=== PATIENT | male | born 1960 | race Caucasian/White ===

== ENCOUNTER 2018-12-05 16:56 | Inpatient (IN) | payer OTHER ==
[~2018-12-05] VITALS: Ht 175.3 cm; Wt 85.7 kg
[~2018-12-05 16:56] MED LIST: [UNRECOGNIZED DRUG - REMARK]
[2018-12-05 17:07] VITALS: BP 134/84
--- NOTE | 2018-12-05 17:28 | NUR ---
PT TO ED WITH C/O COUGH X 3 MOS. PT ONLY REPORTS PAIN UPON COUGHING TO RT SIDE OF CHEST. NO RESP DISTRESS NOTED. LUNG SOUNDS CLEAR BIALTERALLY. PT PLACED INTO BED, PENDING MD KIM.
[2018-12-05] MEDS ORDERED: AZITHROMYCIN 500 MG in DEXTROSE 5% 250 ML IV SCH (18:00)
[2018-12-05] MEDS ORDERED: NACL 0.9% 1,000 ML IV ONE (18:01)
[2018-12-05] MEDS ORDERED: AZITHROMYCIN 500 MG in DEXTROSE 5% 250 ML IV ONE (18:05)
[2018-12-05 18:19] LABS: BASOPHILS # (AUTO) 0.1 K/uL (0.00-0.22); BASOPHILS % (AUTO) 0.6 % (0.0-2.0); EOSINOPHILS # (AUTO) 1.3 K/uL (0-0.4); EOSINOPHILS % (AUTO) 11.5 % (0.0-4.0); HEMATOCRIT 38.2 % (36-52); HEMOGLOBIN 12.8 g/dL (12.0-18.0); LYMPHOCYTES # (AUTO) 1.8 K/uL (2.0-11.5); LYMPHOCYTES % (AUTO) 15.6 % (20.5-51.1); MEAN CORPUSCULAR HEMOGLOBIN 30 pg (27-31); MEAN CORPUSCULAR HGB CONC 34 g/dL (33-37); MEAN CORPUSCULAR VOLUME 89.8 fL (80-94); MONOCYTES # (AUTO) 0.7 K/uL (0.8-1.0); MONOCYTES % (AUTO) 6.5 % (1.7-9.3); NEUTROPHILS # (AUTO) 7.4 K/uL (1.8-7.7); NEUTROPHILS % (AUTO) 65.8 % (42.2-75.2); PLATELET COUNT (AUTO) 323 K/uL (140-450); RED BLOOD CELL COUNT(AUTO) 4.25 MIL/uL (4.20-6.10); WHITE BLOOD COUNT (AUTO) 11.3 K/uL (4.8-10.8)
[2018-12-05] MEDS ORDERED: AZITHROMYCIN 500 MG INJ VIAL IV ONE (18:28)
[2018-12-05] MEDS ORDERED: cefTRIAXone 1,000 MG VIAL ONE (18:28)
[2018-12-05 18:36] LABS: PROTHROMBIN TIME 10.2 secs (10.8-13.4)
[2018-12-05 18:42] LABS: ALBUMIN 2.9 g/dL (3.4-5.0); ANION GAP 15.9 (8-16); CARBON DIOXIDE 24.9 mmol/L (21-32); CREATININE 0.7 mg/dL (0.7-1.3); POTASSIUM 3.8 mmol/L (3.5-5.1); TOTAL BILIRUBIN 0.3 mg/dL (0.0-1.0)
--- NOTE | 2018-12-05 18:50 | NUR ---
PLACED PT ON 2L NC FOR SATURATION OF 93% ROOM AIR. PT TOLERATED WELL.
[2018-12-05 19:13] LABS: APPEARANCE,URINE HAZY (CLEAR); BILIRUBIN,URINE NEGATIVE (NEGATIVE); BLOOD, URINE NEGATIVE (NEGATIVE); COLOR,URINE YELLOW (YELLOW); LEUKOCYTE ESTERASE ,URINE NEGATIVE (NEGATIVE); NITRITE, URINE NEGATIVE (NEGATIVE); UGLUCOSE NEGATIVE (NEGATIVE)
[2018-12-05] MEDS ORDERED: DOL10 PO (19:13)
--- NOTE | 2018-12-05 19:20 | NUR ---
Patient will be admitted to care of DR BOLTON. Admited to MED SURG. Will go to room 120-A. Belongings list completed. Report to PLASTER CASTER.
[2018-12-05 19:30] VITALS: BP 125/70
--- NOTE | 2018-12-05 19:30 | NUR ---
RECIEVED PT. [id number] , NID FROM ER ALOK INIGUEZ , IV SITE INTACT , AMBULATES TO BED , PLAN OF CARE DISCUSSED AND VERBALIZE UNDERSTANDING . BED IN LOW POSITION ,SIDERAILS UP X2 , CALL LIGHT WITHIN REACH . WILL CONT. TO MONITOR. Addendum: 12/06/18 at 0305 by Kimmy Fuentes RN ON O2 /NC AT 3LPM ORDERED.
--- NOTE | 2018-12-05 21:45 | NUR ---
AP MADE T.O ADMITTING ORDERS AND CARRIED OUT .
--- NOTE | 2018-12-05 22:00 | NUR ---
MADE ROUNDS . PT RESPIRATION UNLABORED , EVEN , NO COMPLAIN MADE AT THIS TIME ,WILL CONTINUE TO MONITOR .CALL LIGHT WITHIN REACH
[2018-12-05] MEDS ORDERED: NACL 0.9% 1,000 ML IV SCH (22:40)
[2018-12-06] VITALS: BP 130/70
--- NOTE | 2018-12-06 | NUR ---
MADE ROUNDS .PT RESPIRATION UNLABOR AND EVEN , NO COMPLAIN MADE AT THIS TIME .WILL CONT. TO MONITOR - CALL LIGHT WITHIN REACH
--- NOTE | 2018-12-06 02:00 | NUR ---
PT SLEEPING - NO SIGNS OF DISTRESS NOTED AT THIS TIME , CALL LIGHT WITH IN REACH.
[2018-12-06 03:36] VITALS: BP 130/72
--- NOTE | 2018-12-06 04:00 | NUR ---
MADE ROUNDS , NO COMPLAIN MADE ,CALL LIGHT WITHIN REACH.
--- NOTE | 2018-12-06 06:00 | NUR ---
PT IS RESTING ON BED , NO SIGNS OF RESPIRATORY DISTRESS NOTED , CALL LIGHT WITHIN REACH
--- NOTE | 2018-12-06 07:20 | NUR ---
ENDORSED TO AM SHIFT FOR CONTINUITY OF CARE WITH STABLE CONDITION
--- NOTE | 2018-12-06 07:21 | NUR ---
Received bedside report from pm nurse Kimmy. Pt resting in bed, respirations even & nonlabored with O2 @ 3Lpm via n/c, no signs of distress. Right hand IV intact & asymptomatic with ongoing NS @ 50ml/hr. Call light within reach.
[2018-12-06 08:00] VITALS: BP 115/80
--- NOTE | 2018-12-06 09:56 | NUR ---
PATIENT HAS BEEN SCREENED AND CATEGORIZED MODERATE NUTRITION RISK. PATIENT WILL BE SEEN WITHIN 3-5 DAYS OF ADMISSION. 12/08/18-12/10/[address]
[2018-12-06] MEDS ORDERED: METHADONE 10 MG TAB PO SCH (12:00)
[2018-12-06] MEDS ORDERED: BUDE1AER IH (13:03)
[2018-12-06] MEDS ORDERED: ALBU-118 IH (13:04)
[2018-12-06] MEDS ORDERED: LEVO750T2 PO (13:05)
--- NOTE | 2018-12-06 14:32 | NUR ---
Pt discharge at this time. Verbal & written discharge instructions provided to pt, able to verbalize understanding. Right hand IV discontinued, cannula intact. Pt amb off unit with steady gait to meet with friend at [facility]. All belongings with pt upon departure.
== END 2018-12-06 14:32 | disposition home or self-care (01) | DRG 139 ==
LOC: MED 16:56 → MTU 19:01
PROVIDERS: ADMIT Internal Medicine Pulmonary Disease; ATTEND Internal Medicine Pulmonary Disease
DX: J18.9 Pneumonia, unspecified organism (principal); F11.20 Opioid dependence, uncomplicated; I10 Essential (primary) hypertension; F17.210 Nicotine dependence, cigarettes, uncomplicated; J45.909 Unspecified asthma, uncomplicated
CPT/HCPCS: 36415; 71045; 80053; 81003; 83605; 83880; 84484; 85025; 85610; 87040; 87081; 87086; 93005; 96365; 96368; 99285; J0456; J0696; J7060; Q0092

== ENCOUNTER 2019-01-27 18:35 | Emergency (ER) | payer OTHER ==
[~2019-01-27] VITALS: Ht 175.3 cm; Wt 86.2 kg
[~2019-01-27 18:35] MED LIST changes: +ALBU-118 IH; +BUDE1AER IH; +DOL10 PO; +LEVO750T2 PO; -[UNRECOGNIZED DRUG - REMARK]
[2019-01-27 18:40] VITALS: BP 140/92
[2019-01-27] MEDS ORDERED: methylPREDNISolone SS 125 MG/2 ML VIAL IVP ONE (19:45)
[2019-01-27] MEDS ORDERED: ALBUTEROL SULFATE/IPRATROPIU 3 ML SOL IH ONE (19:45)
[2019-01-27 20:18] LABS: BASOPHILS # (AUTO) 0.1 K/uL (0.00-0.22); BASOPHILS % (AUTO) 0.9 % (0.0-2.0); EOSINOPHILS # (AUTO) 1.4 K/uL (0-0.4); EOSINOPHILS % (AUTO) 13.7 % (0.0-4.0); HEMATOCRIT 38.9 % (36-52); LYMPHOCYTES # (AUTO) 2.4 K/uL (2.0-11.5); LYMPHOCYTES % (AUTO) 23.4 % (20.5-51.1); MEAN CORPUSCULAR HEMOGLOBIN 30 pg (27-31); MEAN CORPUSCULAR HGB CONC 34 g/dL (33-37); MONOCYTES # (AUTO) 0.6 K/uL (0.8-1.0); MONOCYTES % (AUTO) 5.9 % (1.7-9.3); NEUTROPHILS # (AUTO) 5.7 K/uL (1.8-7.7); NEUTROPHILS % (AUTO) 56.1 % (42.2-75.2); PLATELET COUNT (AUTO) 223 K/uL (140-450); RED BLOOD CELL COUNT(AUTO) 4.32 MIL/uL (4.20-6.10); RED CELL DISTRIBUTION WIDTH 14.6 % (11.6-13.7); WHITE BLOOD COUNT (AUTO) 10.1 K/uL (4.8-10.8)
[2019-01-27] MEDS ORDERED: ALBUTEROL 0.083% 2.5 MG/3 ML NEBU INH ONE (20:20)
[2019-01-27] MEDS ORDERED: BUDESONIDE 0.5 MG/2 ML NEBU INH ONE (20:20)
[2019-01-27 21:05] LABS: ANION GAP 16.2 (8-16); CARBON DIOXIDE 21.7 mmol/L (21-32); CREATININE 0.8 mg/dL (0.7-1.3); POTASSIUM 3.9 mmol/L (3.5-5.1)
[2019-01-27 21:09] LABS: ALBUMIN 3.1 g/dL (3.4-5.0); TOTAL BILIRUBIN 0.3 mg/dL (0.0-1.0)
[2019-01-27] MEDS ORDERED: LEVOFLOXACIN 750 MG TAB PO ONE (22:55)
[2019-01-27 23:22] VITALS: BP 150/96
== END 2019-01-27 23:20 | disposition home or self-care (01) ==
LOC: MED 18:35
DX: Z71.6 Tobacco abuse counseling (principal); J44.1 Chronic obstructive pulmonary disease with (acute) exacerbation; F17.210 Nicotine dependence, cigarettes, uncomplicated; Z79.891 Long term (current) use of opiate analgesic
CPT/HCPCS: 36415; 71045; 71250; 80053; 83605; 85025; 87040; 94640; 94644; 96374; 99285; J2930; J7613; J7620; J7626; Q0092

== ENCOUNTER 2019-02-21 22:52 | Emergency (ER) | payer OTHER ==
[~2019-02-21] VITALS: Ht 175.3 cm; Wt 86.2 kg
[~2019-02-21 22:52] MED LIST changes: -ALBU-118 IH; -BUDE1AER IH; -LEVO750T2 PO
[2019-02-21 23:00] VITALS: BP 173/100
[2019-02-21] MEDS ORDERED: ENALAPRILAT 2.5 MG/2 ML VIAL IVP ONE (23:10)
[2019-02-21] MEDS ORDERED: ONDANSETRON 4 MG/2 ML VIAL IVP ONE (23:10)
[2019-02-21] MEDS ORDERED: MORPHINE SULFATE 4 MG/ML SYR IVP ONE (23:10)
[2019-02-21] MEDS ORDERED: hydrALAZINE 20 MG/ML VIAL IVP ONE (23:10)
[2019-02-21 23:36] LABS: BASOPHILS # (AUTO) 0.1 K/uL (0.00-0.22); BASOPHILS % (AUTO) 0.8 % (0.0-2.0); EOSINOPHILS # (AUTO) 0.9 K/uL (0-0.4); EOSINOPHILS % (AUTO) 11.8 % (0.0-4.0); HEMATOCRIT 41.2 % (36-52); HEMOGLOBIN 13.6 g/dL (12.0-18.0); LYMPHOCYTES # (AUTO) 3.6 K/uL (2.0-11.5); LYMPHOCYTES % (AUTO) 45.6 % (20.5-51.1); MEAN CORPUSCULAR HEMOGLOBIN 30 pg (27-31); MEAN CORPUSCULAR HGB CONC 33 g/dL (33-37); MONOCYTES # (AUTO) 0.7 K/uL (0.8-1.0); NEUTROPHILS # (AUTO) 2.6 K/uL (1.8-7.7); NEUTROPHILS % (AUTO) 32.8 % (42.2-75.2); PLATELET COUNT (AUTO) 243 K/uL (140-450); RED BLOOD CELL COUNT(AUTO) 4.53 MIL/uL (4.20-6.10); RED CELL DISTRIBUTION WIDTH 15.2 % (11.6-13.7); WHITE BLOOD COUNT (AUTO) 7.9 K/uL (4.8-10.8)
[2019-02-21 23:45] LABS: ANION GAP 13.2 (8-16); CREATININE 0.8 mg/dL (0.7-1.3); POTASSIUM 3.2 mmol/L (3.5-5.1)
[2019-02-21 23:51] LABS: ALBUMIN 3.3 g/dL (3.4-5.0); TOTAL BILIRUBIN 0.2 mg/dL (0.0-1.0)
[2019-02-22 01:00] VITALS: BP 132/83
== END 2019-02-22 01:00 | disposition home or self-care (01) ==
LOC: MED 22:52
DX: I10 Essential (primary) hypertension (principal); R51 Headache; J44.9 Chronic obstructive pulmonary disease, unspecified; F17.210 Nicotine dependence, cigarettes, uncomplicated; Z79.899 Other long term (current) drug therapy
CPT/HCPCS: 36415; 70450; 80053; 85025; 93005; 96374; 96375; 99284; J0360; J2270; J2405; J3490

== ENCOUNTER 2021-04-30 12:57 | Emergency (ER) | payer OTHER ==
[~2021-04-30] VITALS: Ht 175.3 cm; Wt 83.9 kg
[~2021-04-30 12:57] MED LIST changes: -DOL10 PO; +METH-1550 PO
[2021-04-30 13:38] VITALS: BP 151/120
[2021-04-30] MEDS ORDERED: SULF-59 PO (15:05)
--- NOTE | 2021-04-30 15:46 | NUR ---
PT SEEN AND TREATED BY AVIS HICKS, NO NURSING INTERVENTIONS PROVIDED
[2021-04-30 15:47] VITALS: BP 151/97
--- NOTE | 2021-04-30 15:47 | NUR ---
Patient discharged with v/s stable. Written and verbal after care instructions ABOUT CELLULITIS AND WOUND CARE given and explained. Patient alert, oriented and verbalized understanding of instructions. Ambulatory with steady gait. All questions addressed prior to discharge. ID band removed. Patient advised to follow up with PMD. Rx of BACTRIM DS TAB given. Patient educated on indication of medication including possible reaction and side effects. Opportunity to ask questions provided and answered.
== END 2021-04-30 15:47 | disposition home or self-care (01) ==
LOC: MED 12:57
DX: L03.011 Cellulitis of right finger (principal); L03.113 Cellulitis of right upper limb; Z48.01 Encounter for change or removal of surgical wound dressing; J44.9 Chronic obstructive pulmonary disease, unspecified; I10 Essential (primary) hypertension; Z79.2 Long term (current) use of antibiotics; Z79.899 Other long term (current) drug therapy
CPT/HCPCS: 99283

== ENCOUNTER 2022-08-10 21:38 | Emergency (ER) | payer OTHER ==
[~2022-08-10] VITALS: Ht 175.3 cm; Wt 81.6 kg
[~2022-08-10 21:38] MED LIST changes: +SULF-59 PO
[2022-08-10 22:03] VITALS: BP 152/90
--- NOTE | 2022-08-10 22:06 | NUR ---
to lobby a/w bed ambulatory
--- NOTE | 2022-08-11 00:31 | NUR ---
Klaus goldberg in [facility] - 08/11/22 at [email or web address] Garcia examining patient.
--- NOTE | 2022-08-11 00:36 | NUR ---
Dr. Garcia examining patient.
[2022-08-11] MEDS ORDERED: HYDROcodone/APAP 5/325 MG 1 TAB TAB PO ONE (01:05)
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
[2022-08-11 01:20] LABS: BASOPHILS # (AUTO) 0.1 K/uL (0.00-0.22); EOSINOPHILS # (AUTO) 0.8 K/uL (0-0.4); EOSINOPHILS % (AUTO) 7.7 % (0.0-4.0); HEMATOCRIT 32.4 % (36-52); HEMOGLOBIN 10.6 g/dL (12.0-18.0); LYMPHOCYTES # (AUTO) 2.1 K/uL (2.0-11.5); LYMPHOCYTES % (AUTO) 20.2 % (20.5-51.1); MEAN CORPUSCULAR HEMOGLOBIN 26 pg (27-31); MEAN CORPUSCULAR HGB CONC 33 g/dL (33-37); MEAN CORPUSCULAR VOLUME 79.4 fL (80-94); MONOCYTES % (AUTO) 9.6 % (1.7-9.3); NEUTROPHILS # (AUTO) 6.4 K/uL (1.8-7.7); NEUTROPHILS % (AUTO) 61.5 % (42.2-75.2); PLATELET COUNT (AUTO) 325 K/uL (140-450); RED BLOOD CELL COUNT(AUTO) 4.08 MIL/uL (4.20-6.10); RED CELL DISTRIBUTION WIDTH 17.8 % (11.6-13.7); WHITE BLOOD COUNT (AUTO) 10.5 K/uL (4.8-10.8)
[2022-08-11 01:49] LABS: ALBUMIN 2.8 g/dL (3.4-5.0); ANION GAP 9.8 (8-16); CARBON DIOXIDE 27.6 mmol/L (21-32); CREATININE 0.8 mg/dL (0.6-1.3); POTASSIUM 3.4 mmol/L (3.5-5.1); TOTAL BILIRUBIN 0.3 mg/dL (0.0-1.0)
[2022-08-11 02:25] VITALS: BP 152/90
--- NOTE | 2022-08-11 02:25 | NUR ---
Patient does not wish to proceed with medical care recommended by . Patient given information related to possible complications, up to and including , which could occur as a result of leaving hospital at this time. Patient verbalizes understanding of risks involved leaving against medical advice. Patient has signed AMA form.
[2022-08-12] MEDS ORDERED: ATOR20TA40 PO (11:40)
[2022-08-12] MEDS ORDERED: FURO-572 PO (11:40)
[2022-08-12] MEDS ORDERED: SPIR25TA PO (11:40)
[2022-08-12] MEDS ORDERED: ASPI-1856 PO (11:40)
[2022-08-12] MEDS ORDERED: CEPH500T PO (13:23)
== END 2022-08-11 02:25 | disposition left against medical advice (07) ==
LOC: MED 21:38
DX: I21.4 Non-ST elevation (NSTEMI) myocardial infarction (principal); R60.0 Localized edema; J44.9 Chronic obstructive pulmonary disease, unspecified; I10 Essential (primary) hypertension; Z87.891 Personal history of nicotine dependence; Z79.2 Long term (current) use of antibiotics; Z79.899 Other long term (current) drug therapy
CPT/HCPCS: 36415; 71045; 80053; 83880; 84484; 85025; 93005; 99285

== ENCOUNTER 2022-08-11 18:47 | Inpatient (IN) | payer OTHER ==
[~2022-08-11] VITALS: Ht 175.3 cm; Wt 91.2 kg
[2022-08-11 19:02] VITALS: BP 158/102
--- NOTE | 2022-08-11 19:09 | NUR ---
PT W/C ASSISTED TO BED 1.
--- NOTE | 2022-08-11 19:10 | NUR ---
MD Ware at bedside examining pt.
--- NOTE | 2022-08-11 19:10 | NUR ---
Note undone in [facility] - 08/12/22 at 0344 by [email or web address] MD Ware at bedside for imaging. Addendum: 08/12/22 at 0343 by [email or web address] Amendment ashlny in [facility] - 08/12/22 at 0344 by [email or web address] MD Jeanie at bedside examining pt.
[2022-08-11 19:43] LABS: BASOPHILS # (AUTO) 0.1 K/uL (0.00-0.22); BASOPHILS % (AUTO) 1.3 % (0.0-2.0); EOSINOPHILS # (AUTO) 0.8 K/uL (0-0.4); EOSINOPHILS % (AUTO) 8.1 % (0.0-4.0); HEMATOCRIT 32.6 % (36-52); HEMOGLOBIN 10.6 g/dL (12.0-18.0); LYMPHOCYTES # (AUTO) 1.6 K/uL (2.0-11.5); LYMPHOCYTES % (AUTO) 16.1 % (20.5-51.1); MEAN CORPUSCULAR HEMOGLOBIN 26 pg (27-31); MEAN CORPUSCULAR HGB CONC 33 g/dL (33-37); MONOCYTES # (AUTO) 0.8 K/uL (0.8-1.0); MONOCYTES % (AUTO) 7.5 % (1.7-9.3); NEUTROPHILS # (AUTO) 6.8 K/uL (1.8-7.7); PLATELET COUNT (AUTO) 365 K/uL (140-450); RED BLOOD CELL COUNT(AUTO) 4.07 MIL/uL (4.20-6.10); RED CELL DISTRIBUTION WIDTH 16.9 % (11.6-13.7); WHITE BLOOD COUNT (AUTO) 10.2 K/uL (4.8-10.8)
--- NOTE | 2022-08-11 20:02 | NUR ---
RAD at bedside for imaging.
[2022-08-11 20:07] LABS: ALBUMIN 2.8 g/dL (3.4-5.0); ANION GAP 8.4 (8-16); CARBON DIOXIDE 30.2 mmol/L (21-32); CREATININE 0.9 mg/dL (0.6-1.3); POTASSIUM 3.6 mmol/L (3.5-5.1); TOTAL BILIRUBIN 0.5 mg/dL (0.0-1.0)
[2022-08-11] MEDS ORDERED: ASPIRIN 325 MG TAB PO ONE (20:35)
[2022-08-11] MEDS ORDERED: FUROSEMIDE 20 MG/2 ML VIAL IVP ONE (20:35)
[2022-08-11] MEDS ORDERED: MORPHINE SULFATE 4 MG/ML SYR IVP PRN (21:15)
[2022-08-11] MEDS ORDERED: KCL 20 MEQ IN 100 mL PREMIX 200 ML IV PRN (21:15)
[2022-08-11] MEDS ORDERED: MAG SULF 2000 MG/WATER PREMIX 50 ML IV PRN (21:15)
[2022-08-11] MEDS ORDERED: HYDROcodone/APAP 5/325 MG 1 TAB TAB PO PRN (21:15)
[2022-08-11] MEDS ORDERED: ZOLPIDEM 5 MG TAB PO PRN (21:15)
[2022-08-11] MEDS ORDERED: ONDANSETRON 4 MG/2 ML VIAL IVP PRN (21:15)
[2022-08-11] MEDS ORDERED: ACETAMINOPHEN 325 MG TAB PO PRN (21:15)
[2022-08-11] MEDS ORDERED: POTASSIUM CHLORIDE 10 MEQ TABER PO PRN (21:15)
[2022-08-11] MEDS ORDERED: hydrALAZINE 20 MG/ML VIAL IVP PRN (21:20)
[2022-08-11] MEDS ORDERED: cefTRIAXone 1,000 MG VIAL ONE (21:54)
[2022-08-11] MEDS ORDERED: AZITHROMYCIN 500 MG in DEXTROSE 5% 250 ML IV SCH (22:00)
[2022-08-11] MEDS ORDERED: AZITHROMYCIN 500 MG INJ VIAL IV ONE (22:14)
--- NOTE | 2022-08-11 22:17 | NUR ---
CRITICAL LAB: TROPONIN 86 Reported to MD Ware.
[2022-08-11] MEDS: ATORVASTATIN 20 MG TAB PO SCH (22:43)
--- NOTE | 2022-08-12 03:09 | NUR ---
Unable to complete med recon; Pt unable to provide home med list at this time. Per pt, he takes two bp meds at home, but does not know the name of them. Pt will provide when possible.
--- NOTE | 2022-08-12 06:48 | NUR ---
Pt reported he is on Methadone 159 mg daily and has not had his dose since Friday; he was unable to make it in on Friday. Pt currently calling methadone clinic.
[2022-08-12 07:00] LABS: BASOPHILS # (AUTO) 0.2 K/uL (0.00-0.22); BASOPHILS % (AUTO) 1.7 % (0.0-2.0); EOSINOPHILS # (AUTO) 0.7 K/uL (0-0.4); EOSINOPHILS % (AUTO) 6.7 % (0.0-4.0); HEMATOCRIT 36.3 % (36-52); LYMPHOCYTES # (AUTO) 2.8 K/uL (2.0-11.5); LYMPHOCYTES % (AUTO) 25.9 % (20.5-51.1); MEAN CORPUSCULAR HEMOGLOBIN 26 pg (27-31); MEAN CORPUSCULAR HGB CONC 33 g/dL (33-37); MEAN CORPUSCULAR VOLUME 79.1 fL (80-94); MONOCYTES # (AUTO) 0.7 K/uL (0.8-1.0); MONOCYTES % (AUTO) 6.8 % (1.7-9.3); NEUTROPHILS # (AUTO) 6.4 K/uL (1.8-7.7); NEUTROPHILS % (AUTO) 58.9 % (42.2-75.2); PLATELET COUNT (AUTO) 375 K/uL (140-450); RED BLOOD CELL COUNT(AUTO) 4.59 MIL/uL (4.20-6.10); WHITE BLOOD COUNT (AUTO) 10.9 K/uL (4.8-10.8)
[2022-08-12 07:23] LABS: ANION GAP 8.3 (8-16); CARBON DIOXIDE 30.3 mmol/L (21-32); CREATININE 0.9 mg/dL (0.6-1.3); POTASSIUM 3.6 mmol/L (3.5-5.1)
--- NOTE | 2022-08-12 07:25 | NUR ---
Care endorsed to Arsenio Carroll for continuity of care. Questions/Concerns answered.
--- NOTE | 2022-08-12 07:29 | NUR ---
report received from wali rn
--- NOTE | 2022-08-12 08:00 | NUR ---
patient admitted for OBS-tele. not in any form of distress. plan of care discussed. agreeable.
[2022-08-12] MEDS ORDERED: METHADONE 10 MG TAB PO SCH (09:00)
[2022-08-12] MEDS ORDERED: DOCUSATE SODIUM 100 MG GELCAP PO SCH (09:00)
[2022-08-12] MEDS ORDERED: ASPIRIN 81 MG TAB.CHEW PO SCH (09:00)
[2022-08-12] MEDS ORDERED: FUROSEMIDE 40 MG/4 ML VIAL IVP SCH (09:00)
[2022-08-12] MEDS ORDERED: ENOXAPARIN 40 MG/0.4 ML SYR SUBQ SCH (09:00)
--- NOTE | 2022-08-12 09:03 | NUR ---
Patient will be admitted to care of dr. mejía. Admited to TELE. Will go to room 125b. Belongings list completed. Report to jose montelongo.
--- NOTE | 2022-08-12 10:23 | NUR ---
PATIENT HAS BEEN SCREENED AND CATEGORIZED MODERATE NUTRITION RISK. PATIENT WILL BE SEEN WITHIN 3-5 DAYS OF ADMISSION. 08/11/22-08/16/[address]
[2022-08-12] MEDS: ATORVASTATIN 20 MG TAB PO SCH (10:56)
[2022-08-12] MEDS ORDERED: ATOR20TA40 PO (11:40)
[2022-08-12] MEDS ORDERED: FURO-572 PO (11:40)
[2022-08-12] MEDS ORDERED: SPIR25TA PO (11:40)
[2022-08-12] MEDS ORDERED: ASPI-1856 PO (11:40)
--- NOTE | 2022-08-12 12:00 | NUR ---
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 SW TO FOLLOW
[2022-08-12] MEDS ORDERED: METHADONE HCL ORAL SOLN 10 MG/ML SOLN PO SCH (13:00)
[2022-08-12] MEDS ORDERED: CEPH500T PO (13:23)
[2022-08-12] MEDS ORDERED: cephALEXin 500 MG CAP PO SCH ×2 (13:45→18:00)
[2022-08-12 14:47] VITALS: BP 140/76
--- NOTE | 2022-08-12 15:36 | NUR ---
patient discharged home. iv access removed. personal belongings was sent home with the patiesmer pratt. stable upon discharge
[2022-08-13] MEDS ORDERED: METHADONE HCL ORAL SOLN 10 MG/ML SOLN PO SCH (09:00)
--- NOTE | 2022-08-16 09:30 | NUR ---
CALLED DR WATSON'S OFFICE LOCATED AT [address] [place] [address]. SPOKE WITH NATE WHO INFORMED ME PT HAD ALREADY MADE A FOLLOW UP APPOINTMENT FOR 08/14/2022 AT 1400.
== END 2022-08-12 16:01 | disposition home or self-care (01) | DRG 194 ==
LOC: MED 18:47 → MMU 21:17 → OBSVTOIN 21:17 → MTU 08-12 05:48 → MMU 08-12 05:57
PROVIDERS: ADMIT Hospitalist; ATTEND Hospitalist
DX: I11.0 Hypertensive heart disease with heart failure (principal); I42.7 Cardiomyopathy due to drug and external agent; I50.33 Acute on chronic diastolic (congestive) heart failure; F10.20 Alcohol dependence, uncomplicated; F11.10 Opioid abuse, uncomplicated; Y90.9 Presence of alcohol in blood, level not specified
CPT/HCPCS: 36415; 71045; 80048; 80053; 83735; 83880; 84484; 85025; 93970; 96365; 96368; 96375; 99285; J0456; J0696; J1650; J1940; J7060; Q0092